=== PATIENT | female | born 1980 | race Caucasian/White ===

== ENCOUNTER 2016-09-01 22:40 | Emergency (ER) | payer OTHER ==
[~2016-09-01] VITALS: Ht 175.3 cm; Wt 98.0 kg
[~2016-09-01 22:40] MED LIST: CLIN-44 PO; LORA10TA68 PO; PNV1TABL25 PO
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
[2016-09-01 23:13] VITALS: BP 109/81
[2016-09-01] MEDS ORDERED: CEPH-264 PO (23:41)
[2016-09-01] MEDS ORDERED: FLUC100T7 PO (23:42)
[2016-09-01] MEDS ORDERED: HYDR-79 PO (23:44)
[2016-09-01] MEDS ORDERED: METRONIDAZOLE 500 MG TABLET PO ONE (23:45)
[2016-09-01] MEDS ORDERED: CEFTRIAXONE SODIUM 1 GM in IV NORMAL SALINE 50ML 50 ML IV ONE (23:45)
[2016-09-01] MEDS ORDERED: TRAMADOL 50 MG PO ONE (23:45)
[2016-09-01] MEDS ORDERED: AZITHROMYCIN 250 MG TABLET. PO ONE (23:45)
[2016-09-01] MEDS ORDERED: ONDANSETRON PF 4 MG/2 ML VIAL. IV ONE (23:45)
[2016-09-01] MEDS ORDERED: CEFTRIAXONE SODIUM 1 GM VIAL IV ONE (23:58)
[2016-09-02] MEDS ORDERED: ONDANSETRON ODT 4 MG TAB.RAPDIS PO ONE
[2016-09-02] MEDS ORDERED: CEFTRIAXONE IM 1 GM VIAL. IM ONE
[2016-09-02 00:29] LABS: BARBITURATES NEG (NEG); BENZODIAZEPINES POS (NEG); CANNABINOIDS NEG (NEG); COCAINE NEG (NEG); METHADONE NEG (NEG); OPIATES NEG (NEG); PHENCYCLIDINE NEG (NEG)
[2016-09-02 00:30] LABS: AMPHETAMINE/METHAMPHETAMINE NEG (NEG)
[2016-09-02 00:42] LABS: BILIRUBIN,URINE NEG (NEG); CLARITY,URINE CLEAR; COLOR,URINE YELLOW; GLUCOSE,URINE NEG (NEG); UROBILINOGEN,URINE 0.2 mg/dL (0.2 mg/dL)
[2016-09-02 00:43] LABS: BACTERIA,URINE FEW /HPF (0-FEW); NITRITE,URINE NEG (NEG); SQUAMOUS EPITHELIAL CELL,UR FEW /LPF; WBC,URINE 0 /HPF (0-4)
[2016-09-02 19:07] LABS: HCV ANTIBODY <0.1 s/co ratio (0.0-0.9); HEP A IGM ABDY Negative (Negative); RPR REFLEX Negative (Non Reactive)
[2016-09-05 18:12] LABS: CHLAMYDIA PROBE Negative (Negative)
== END 2016-09-02 00:42 | disposition home or self-care (01) ==
LOC: ER 22:40
DX: N76.0 Acute vaginitis (principal); N76.2 Acute vulvitis; R21 Rash and other nonspecific skin eruption; Z86.14 Personal history of Methicillin resistant Staphylococcus aureus infection; Z88.6 Allergy status to analgesic agent; Z88.1 Allergy status to other antibiotic agents
CPT/HCPCS: 36415; 80074; 80305; 81001; 84702; 86592; 86593; 87491; 87591; 96372; 99284; J0456; J0696; Q0111; Q0162; G0481

== ENCOUNTER 2016-12-13 18:10 | Emergency (ER) | payer OTHER ==
[~2016-12-13] VITALS: Ht 175.3 cm; Wt 98.0 kg
[~2016-12-13 18:10] MED LIST changes: +CEPH-264 PO; -CLIN-44 PO; +CLIN150C14 PO; +FLUC100T7 PO; +HYDR-79 PO
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
[2016-12-13 19:20] VITALS: BP 136/71
[2016-12-13] MEDS ORDERED: HYDR-971 PO (19:21)
[2016-12-13] MEDS ORDERED: IBUP600T16 PO (19:21)
[2016-12-13] MEDS ORDERED: IBUPROFEN 600 MG TABLET. PO ONE (19:45)
[2016-12-13] MEDS ORDERED: HYDROcodone/APAP 7.5/325MG 1 TAB TABLET PO ONE (19:45)
--- NOTE | 2016-12-14 07:44 | RAD ---
Right hand, 3 views, 12/13/2016: History: Hand injury, pain No fracture or dislocation is identified. The soft tissues are unremarkable. IMPRESSION: No significant right hand abnormality is detected.
--- NOTE | 2016-12-14 07:51 | RAD ---
Right wrist, 3 views, 12/13/2016: History: Injury, pain No fracture or dislocation is identified. There is mild subcutaneous edema about the wrist. IMPRESSION: No acute bony abnormality is detected.
== END 2016-12-13 19:30 | disposition home or self-care (01) ==
LOC: ER 18:10
DX: S60.211A Contusion of right wrist, initial encounter (principal); J45.909 Unspecified asthma, uncomplicated; Z88.1 Allergy status to other antibiotic agents; Z88.6 Allergy status to analgesic agent; W22.01XA Walked into wall, initial encounter; Y93.89 Activity, other specified; Y99.8 Other external cause status; Y92.89 Other specified places as the place of occurrence of the external cause
CPT/HCPCS: 73110; 73130; 81025; 99284-25

== ENCOUNTER 2017-03-29 13:13 | Emergency (ER) | payer OTHER ==
[~2017-03-29] VITALS: Ht 175.3 cm; Wt 98.0 kg
[~2017-03-29 13:13] MED LIST changes: +HYDR-971 PO; +IBUP600T16 PO
[2017-03-29] MEDS ORDERED: FAMOTIDINE 20 MG/2 ML VIAL IVP ONE (13:30)
[2017-03-29] MEDS ORDERED: DEXAMETHASONE SOD PHOS 4 MG/ML VIAL IV ONE (13:30)
[2017-03-29] MEDS ORDERED: IV NORMAL SALINE 1,000ML 1,000 ML IV SCH (13:30)
[2017-03-29] MEDS ORDERED: diphenhydrAMINE 50 MG/ML VIAL IVP ONE (13:30)
--- NOTE | 2017-03-29 13:30 | PHYS DOC ---
Past History Past Medical History: Anxiety, Depression Past Surgical History: Tonsillectomy Alcohol Use: None Drug Use: None Adult General Chief Complaint Chief Complaint: DIFFICULTY SWALLOWING HPI HPI Patient is a 36 year old female who presents with complaint of difficulty with swallowing and speaking. Patient states that she started feeling some fullness in her throat shortly prior to arrival. EMS brought the patient to the emergency department. They had given the patient 0.3 mg of IM epinephrine prior to arrival which patient stated provided mild to moderate relief. Patient denies any symptoms prior to onset including fevers or sore throat. Patient has had history of tonsillectomy. The patient is speaking currently in a whisper. Patient denies shortness of breath or difficulty breathing. Review of Systems Review of Systems Constitutional: Denies fever or chills [] Eyes: Denies change in visual acuity, redness, or eye pain [] HENT: Throat swelling, difficulty speaking and swallowing[] Respiratory: Denies cough or shortness of breath [] Cardiovascular: Denies chest pain or edema[] GI: Denies abdominal pain, nausea, vomiting, bloody stools or diarrhea [] : Denies dysuria or hematuria [] Musculoskeletal: Denies back pain or joint pain [] Integument: Denies rash or skin lesions [] Neurologic: Denies headache, focal weakness or sensory changes [] Current Medications Current Medications Current Medications Medications (Trade) Dose Ordered Sig/Galo Start Time Stop Time Status Last Admin Dose Admin Dexamethasone Sodium Phosphate (Decadron) 20 mg 1X ONCE 03/29/17 13:30 03/29/17 13:31 Diphenhydramine HCl (Benadryl) 25 mg 1X ONCE 03/29/17 13:30 03/29/17 13:31 UNV Famotidine (Pepcid) 20 mg 1X ONCE 03/29/17 13:30 03/29/17 13:31 UNV Sodium Chloride 1,000 ml @ 1,000 mls/hr Q1H 03/29/17 13:30 03/29/17 14:29 Allergies Allergies Allergies Coded Allergies Type Severity Reaction Last Updated Verified naproxen Adverse Reaction Intermediate 09/06/14 Yes vancomycin Adverse Reaction Intermediate 09/06/14 Yes Physical Exam Physical Exam Constitutional: Alert, afebrile, appears in mild to moderate distress. [] HENT: Normocephalic, atraumatic, bilateral external ears normal, mild uvular edema, mild pharyngeal erythema, no oral exudates, nose normal. [] Eyes: PERRLA, EOMI, conjunctiva normal, no discharge. [] Neck: Normal range of motion, no tenderness, supple, no stridor. [] Cardiovascular:Heart rate regular rhythm, no murmur [] Lungs & Thorax: Bilateral breath sounds clear to auscultation [] Abdomen: Bowel sounds normal, soft, no tenderness, no masses, no pulsatile masses. [] Skin: Warm, dry, no erythema, no rash. [] Back: No tenderness, no CVA tenderness. [] Extremities: No tenderness, no cyanosis, no clubbing, ROM intact, no edema. [] Neurologic: Alert and oriented X 3, normal motor function, normal sensory function, no focal deficits noted. [] Current Patient Data Vital Signs Vital Signs Date Time Temp Pulse Resp B/P (MAP) Pulse Ox O2 Delivery O2 Flow Rate FiO2 03/29/17 15:34 66 18 126/76 (93) 95 Room Air 03/29/17 13:13 98.4 Lab Results Laboratory Tests Test 03/29/17 13:25 03/29/17 13:35 03/29/17 14:22 03/29/17 14:55 White Blood Count 11.8 x10^3/uL Red Blood Count 5.09 x10^6/uL Hemoglobin 15.2 g/dL Hematocrit 44.0 % Mean Corpuscular Volume 86 fL Mean Corpuscular Hemoglobin 30 pg Mean Corpuscular Hemoglobin Concent 34 g/dL Red Cell Distribution Width 13.8 % Platelet Count 149 x10^3/uL Neutrophils (%) (Auto) 29 % Lymphocytes (%) (Auto) 66 % Monocytes (%) (Auto) 5 % Eosinophils (%) (Auto) 0 % Basophils (%) (Auto) 0 % Neutrophils # (Auto) 3.4 x10^3uL Lymphocytes # (Auto) 7.8 x10^3/uL Monocytes # (Auto) 0.6 x10^3/uL Eosinophils # (Auto) 0.0 x10^3/uL Basophils # (Auto) 0.0 x10^3/uL Sodium Level 140 mmol/L Potassium Level 3.0 mmol/L Chloride Level 105 mmol/L Carbon Dioxide Level 25 mmol/L Anion Gap 10 Blood Urea Nitrogen 7 mg/dL Creatinine 0.8 mg/dL Estimated GFR (Cockcroft-Gault) 82.1 Glucose Level 152 mg/dL Calcium Level 9.0 mg/dL Group A Streptococcus Rapid Negative Urine Collection Type Void Urine Color [place] Urine Clarity Cloudy Urine pH 5.0 Urine Specific [place] >=1.030 Urine Protein Neg Urine Glucose (UA) Neg mg/dL Urine Ketones (Stick) Trace mg/dL Urine Blood Neg Urine Nitrite Neg Urine Bilirubin Neg Urine Urobilinogen Dipstick 0.2 mg/dL Urine Leukocyte Esterase Neg Urine RBC Occ /HPF Urine WBC 1-4 /HPF Urine Squamous Epithelial Cells Mod /LPF Urine Amorphous Sediment Present /HPF Urine Bacteria Few /HPF Urine Mucus Mod /LPF Bedside Urine HCG, Qualitative hcg negative Current Medications Medications (Trade) Dose Ordered Sig/Galo Route PRN Reason Start Time Stop Time Status Last Admin Dose Admin Sodium Chloride 1,000 ml @ 1,000 mls/hr Q1H IV 03/29/17 13:30 03/29/17 14:29 DC 03/29/17 13:58 Dexamethasone Sodium Phosphate (Decadron) 20 mg 1X ONCE IV 03/29/17 13:30 03/29/17 13:31 DC 03/29/17 13:56 Diphenhydramine HCl (Benadryl) 25 mg 1X ONCE IVP 03/29/17 13:30 03/29/17 13:31 DC 03/29/17 13:56 Famotidine (Pepcid) 20 mg 1X ONCE IVP 03/29/17 13:30 03/29/17 13:31 DC 03/29/17 13:57 Ondansetron HCl (Zofran) 4 mg 1X ONCE IV 03/29/17 14:15 03/29/17 14:17 DC 03/29/17 14:08 Iohexol (Omnipaque 300 Mg/ml) 75 ml 1X ONCE IV 03/29/17 14:45 03/29/17 14:46 DC 03/29/17 14:52 Ampicillin Sodium/ Sulbactam Sodium 3 gm/Sodium Chloride 100 ml @ 200 mls/hr 1X ONCE IV 03/29/17 16:00 03/29/17 16:29 EKG EKG Not performed[] Radiology/Procedures Radiology/Procedures [address] [address] IMAGING REPORT Signed PATIENT: CHERYL MARTINEZ ACCOUNT: [id number] : 1980 LOCATION: ER AGE: 36 SEX: F EXAM STATUS: REG ER ORD. PHYSICIAN: MAGDA KAUR MD REASON: difficulty speaking, throat fullness PROCEDURE: NECK SOFT TISSUE Neck for soft tissues, 03/29/2017: History: Throat fullness, difficulty speaking Cartilaginous calcifications are present in the laryngeal region. The epiglottis is not clearly defined but shows no definite enlargement. There is soft tissue swelling at the base of the tongue in the preepiglottic region. No prevertebral soft tissue swelling is seen. The tracheal airway is unremarkable. IMPRESSION: Nonspecific soft tissue swelling at the base of the tongue. DICTATED AND SIGNED BY: TYSHAWN TREVINO MD DATE: 03/29/178 CC: MAGDA KAUR MD; [facility] ~ [address] [address] IMAGING REPORT Signed PATIENT: CHERYL MARTINEZ ACCOUNT: [id number] : 1980 LOCATION: ER AGE: 36 SEX: F EXAM STATUS: REG ER ORD. PHYSICIAN: MAGDA KAUR MD REASON: soft tissue swelling at base of tongue PROCEDURE: CT SOFT TISSUE NECK W/CONTRAST CT neck without IV contrast Indication: Soft tissue swelling of the base of tongue. Technique: CT neck with 75 mL of Omnipaque 300 with multi planar reformats. Comparison: None Findings: Visualized sections through the brain are within normal limits. Visualized orbits within normal limits. The nasopharynx is within normal limits. There is enlargement of the lingual tonsils with 6 mm well-circumscribed low attenuating lesion in the left aspect with enhancing periphery. Pharyngeal fat is preserved. The hypopharynx within normal limits. Submandibular glands, parotid glands and thyroid are within normal limits. Enlarged cervical lymph nodes. Index lymph nodes as follows: -Right submandibular lymph node measures 1.4 x 0.8 cm (series 2 image 34). -Right level 2A lymph node measures 1.8 x 0.8 cm (series 2 image 30). Another right level 2A lymph node measures 1.2 x 1.0 cm (series 2 image 34) -Left level 3 lymph node measures 1.3 x 1.1 cm (series 2 image 46). -Left neck base lymph node measures 1.4 x 1.1 cm (series 2 image 47). Visualized lungs are clear. Prevertebral soft tissue within normal limits. No suspicious bony lesions. Jugular veins are patent. Impression: 1. Bilateral cervical adenopathy and prominence of lingual tonsils concerning for lymphoproliferative disease. 2. Small (6 mm) area of attenuation within the left aspect of the lingual tonsil may represent small tonsillar abscess. PQRS Compliance Statement: One or more of the following individualized dose reduction techniques were utilized for this examination: 1. Automated exposure control 2. Adjustment of the mA and/or kV according to patient size 3. Use of iterative reconstruction technique DICTATED AND SIGNED BY: GAYLA FRANCIS DO DATE: 03/29/171499 CC: MAGDA KAUR MD; [facility] ~ [] Course & Med Decision Making Course & Med Decision Making Pertinent Labs and Imaging studies reviewed. (See chart for details) The patient was given IV Decadron, Benadryl, and Pepcid as well as IV fluids upon initial presentation to the emergency department. The patient's plain film x-ray showed fullness at the base of the tongue, thus prompting CT imaging. The CT imaging shows bilateral lymphadenopathy as well as enlarged lingual tonsils and a possible left lingual tonsillar abscess. On reevaluation, the patient continues to have a muffled voice but is maintaining her airway without difficulty. I contacted [facility] transfer line and spoke with Dr. English of ENT. She accepted the patient for transfer to the emergency department at [facility] for acute evaluation. Patient was administered 3 g of Unasyn prior to transfer. Patient will be transferred by ground EMS. Dragon Disclaimer Dragon Disclaimer This chart was dictated in whole or in part using Voice Recognition software in a busy, high-work load, and often noisy Emergency Department environment. It may contain unintended and wholly unrecognized errors or omissions. Departure Departure: Impression: Primary Impression: Acute lingual tonsillitis Additional Impression: Difficulty swallowing Disposition: 02 XFER SHT-TRM HOSP Condition: STABLE Referrals: DARWIN LAGUNAS (PCP) Problem Qualifiers Additional Impression: Difficulty swallowing Dysphagia type: pharyngeal phase Qualified Codes: R13.13 - Dysphagia, pharyngeal phase MAGDA KAUR MD Mar 29, 2017 13:30
[2017-03-29 13:35] LABS: BASO % 0 % (0-3); EOS % 0 % (0-3); HEMOGLOBIN 15.2 g/dL (12.0-15.5); LYMPH # 7.8 x10^3/uL (1.0-4.8); LYMPH % 66 % (24-48); MEAN CORPUSCULAR HEMOGLOBIN 30 pg (25-35); MEAN CORPUSCULAR HGB CONC 34 g/dL (31-37); MEAN CORPUSCULAR VOLUME 86 fL (79-100); MONO # 0.6 x10^3/uL (0.0-1.1); MONO % 5 % (0-9); NEUT # 3.4 x10^3uL (1.8-7.7); NEUT % 29 % (31-73); PLATELET COUNT 149 x10^3/uL (140-400); RED BLOOD COUNT 5.09 x10^6/uL (3.50-5.40); RED CELL DISTRIBUTION WIDTH 13.8 % (11.5-14.5); WHITE BLOOD COUNT 11.8 x10^3/uL (4.0-11.0)
[2017-03-29 13:44] LABS: CREATININE 0.8 mg/dL (0.6-1.0); GFR 82.1
[2017-03-29] MEDS ORDERED: ONDANSETRON PF 4 MG/2 ML VIAL. IV ONE (14:15)
--- NOTE | 2017-03-29 14:24 | RAD ---
Neck for soft tissues, 03/29/2017: History: Throat fullness, difficulty speaking Cartilaginous calcifications are present in the laryngeal region. The epiglottis is not clearly defined but shows no definite enlargement. There is soft tissue swelling at the base of the tongue in the preepiglottic region. No prevertebral soft tissue swelling is seen. The tracheal airway is unremarkable. IMPRESSION: Nonspecific soft tissue swelling at the base of the tongue.
[2017-03-29] MEDS ORDERED: IOHEXOL 300 MG/ML 75 ML VIAL. IV ONE (14:45)
--- NOTE | 2017-03-29 15:13 | RAD ---
CT neck without IV contrast Indication: Soft tissue swelling of the base of tongue. Technique: CT neck with 75 mL of Omnipaque 300 with multi planar reformats. Comparison: None Findings: Visualized sections through the brain are within normal limits. Visualized orbits within normal limits. The nasopharynx is within normal limits. There is enlargement of the lingual tonsils with 6 mm well-circumscribed low attenuating lesion in the left aspect with enhancing periphery. Pharyngeal fat is preserved. The hypopharynx within normal limits. Submandibular glands, parotid glands and thyroid are within normal limits. Enlarged cervical lymph nodes. Index lymph nodes as follows: -Right submandibular lymph node measures 1.4 x 0.8 cm (series 2 image 34). -Right level 2A lymph node measures 1.8 x 0.8 cm (series 2 image 30). Another right level 2A lymph node measures 1.2 x 1.0 cm (series 2 image 34) -Left level 3 lymph node measures 1.3 x 1.1 cm (series 2 image 46). -Left neck base lymph node measures 1.4 x 1.1 cm (series 2 image 47). Visualized lungs are clear. Prevertebral soft tissue within normal limits. No suspicious bony lesions. Jugular veins are patent. Impression: 1. Bilateral cervical adenopathy and prominence of lingual tonsils concerning for lymphoproliferative disease. 2. Small (6 mm) area of attenuation within the left aspect of the lingual tonsil may represent small tonsillar abscess. PQRS Compliance Statement: One or more of the following individualized dose reduction techniques were utilized for this examination: 1. Automated exposure control 2. Adjustment of the mA and/or kV according to patient size 3. Use of iterative reconstruction technique
[2017-03-29 15:20] LABS: BILIRUBIN,URINE NEG (NEG); CLARITY,URINE CLOUDY; COLOR,URINE AMBER; GLUCOSE,URINE NEG (NEG)
[2017-03-29 15:21] LABS: AMORPHOUS SEDIMENT,UR PRESENT /HPF; BACTERIA,URINE FEW /HPF (0-FEW); NITRITE,URINE NEG (NEG); RBC,URINE OCC /HPF (0-2); SQUAMOUS EPITHELIAL CELL,UR MOD /LPF; UROBILINOGEN,URINE 0.2 mg/dL (0.2 mg/dL)
[2017-03-29] MEDS ORDERED: AMPICILLIN/SULBACTAM 3 GM in IV NORMAL SALINE 100ML 100 ML IV ONE (16:00)
[2017-03-29 16:50] VITALS: BP 111/58
== END 2017-03-29 16:45 | disposition short-term general hospital (02) ==
LOC: ER 13:13
DX: J03.90 Acute tonsillitis, unspecified (principal); R13.10 Dysphagia, unspecified; F41.9 Anxiety disorder, unspecified; Z88.6 Allergy status to analgesic agent; Z88.1 Allergy status to other antibiotic agents
CPT/HCPCS: 36415; 70360; 70491; 80048; 81001; 81025; 85025; 87070; 87880; 96361; 96365; 96375; 99285; J0295; J1100; J1200; J2405; Q9967; S0028; J7030

== ENCOUNTER 2017-08-17 15:28 | Emergency (ER) | payer OTHER ==
[~2017-08-17] VITALS: Ht 175.3 cm; Wt 84.4 kg
[2017-08-17 15:28] VITALS: BP 121/61
--- NOTE | 2017-08-17 16:56 | PHYS DOC ---
Past History Past Medical History: Anxiety, Depression Past Surgical History: Tonsillectomy Smoking: Non-smoker Alcohol Use: None Drug Use: None Adult General Chief Complaint Chief Complaint: FLU SYMPTOM HPI HPI 36-year-old female patient with history of asthma complaining of nasal congestion and dry cough and sore throat and sinus pain for the last 2 weeks with subjective fever and episodes of shortness of breath. Patient complaining of few episodes of diarrhea and one episode of vomiting after cough. Patient did not have sick contacts at home and did not seeking medical attention. Patient states she is not able to sleep because of cough. Review of Systems Review of Systems Constitutional: Fever Eyes: Denies change in visual acuity, redness, or eye pain [] HENT: His nasal congestion Respiratory: Reports cough and shortness of breath Cardiovascular: No additional information not addressed in HPI [] GI: Denies abdominal pain, nausea, reports vomiting vomiting, diarrhea [] : Denies dysuria or hematuria [] Musculoskeletal: Denies back pain or joint pain [] Integument: Denies rash or skin lesions [] Neurologic: Denies headache, focal weakness or sensory changes [] Endocrine: Denies polyuria or polydipsia [] All other systems were reviewed and found to be within normal limits, except as documented in this note. Current Medications Current Medications Current Medications Medications (Trade) Dose Ordered Sig/Galo Start Time Stop Time Status Last Admin Dose Admin Albuterol/ Ipratropium (Duoneb) 3 ml 1X ONCE 08/17/17 17:00 08/17/17 17:01 UNV Benzonatate (Tessalon Perle) 100 mg 1X ONCE 08/17/17 17:00 08/17/17 17:01 UNV Allergies Allergies Allergies Coded Allergies Type Severity Reaction Last Updated Verified naproxen Adverse Reaction Intermediate 09/06/14 Yes vancomycin Adverse Reaction Intermediate 09/06/14 Yes Physical Exam Physical Exam mild no acute distress, non-toxic appearance. [] HENT: Normocephalic, atraumatic, bilateral external ears normal, oropharynx moist, pharyngeal erythema, no oral exudates, nose normal. [] Eyes: PERRLA, EOMI, conjunctiva normal, no discharge. [] Neck: Normal range of motion, no tenderness, supple, no stridor. [] Cardiovascular:Heart rate regular rhythm, no murmur [] Lungs & Thorax: Bilateral breath sounds clear to auscultation [] Abdomen: Bowel sounds normal, soft, no tenderness, no masses, no pulsatile masses. [] Skin: Warm, dry, no erythema, no rash. [] Back: No tenderness, no CVA tenderness. [] Extremities: No tenderness, no cyanosis, no clubbing, ROM intact, no edema. [] Neurologic: Alert and oriented X 3, normal motor function, normal sensory function, no focal deficits noted. [] Psychologic: Anxious, judgement normal, mood normal. [] Current Patient Data Vital Signs Vital Signs Date Time Temp Pulse Resp B/P (MAP) Pulse Ox O2 Delivery O2 Flow Rate FiO2 08/17/17 15:28 98.4 82 18 100 Room Air EKG EKG [] Radiology/Procedures Radiology/Procedures Chest x-ray interpreted by me and did not show acute finding[] Course & Med Decision Making Course & Med Decision Making Pertinent Labs and Imaging studies reviewed. (See chart for details) []discharge: I've spoken with the patient and/or caregivers. I've explained the patient's condition, diagnosis and treatment plan based on information available to me at this time. I've answered the patient's and/or caregivers questions and addressed any concerns. The patient and/or caregivers have a good understanding the patient's diagnosis, condition and treatment plan as can be expected at this point. Vital signs have been stabilized. The patient's condition is stable for discharge from the emergency department. The patient will pursue further outpatient evaluation with her primary care provider or other designated consulting physician as outlined in the discharge instructions. Patient and/or caregivers are agreeable to this plan of care and follow-up instructions have been explained in detail. The patient and/or caregivers have received these instructions in written format and expressed understanding of these discharge instructions. The patient and her caregivers are aware that if any significant change in condition or worsening of symptoms should prompt him to immediately return to this of the closest emergency department. If an emergent department is not readily available I would encourage him to call 911. Esauon Disclaimer Esauon Disclaimer This electronic medical record was generated, in whole or in part, using a voice recognition dictation system. Departure Departure: Impression: Primary Impression: Upper respiratory infection Disposition: HOME, SELF-CARE (At 1800) Condition: IMPROVED Referrals: DARWIN LAGUNAS (PCP) Patient Instructions: Upper Respiratory Infection, Adult Additional Instructions: Drink plenty of liquids Follow-up with your primary care physician in 3-5 days Return to ER if not getting better Scripts Hydrocodone/Chlorphen P-Stirex (Tussionex Pennkinetic Susp) [address].er.12h 5 ML PO BID, #120 ML Prov: LORRI ESTEBAN MD 08/17/17 Methylprednisolone (MEDROL) 4 Mg Tab.ds.pk 1 PKG PO UD, #1 PKG Prov: LORRI ESTEBAN MD 08/17/17 Amoxicillin/Potassium Clav (AUGMENTIN 875-125 TABLET) 1 Each Tablet 1 TAB PO BID, #14 TAB Prov: LORRI ESTEBAN MD 08/17/17 LORRI ESTEABN MD Aug 17, 2017 16:56
[2017-08-17] MEDS ORDERED: BENZONATATE 100 MG CAPSULE. PO ONE (17:00)
[2017-08-17] MEDS ORDERED: IPRATRPIUM/ALBUTEROL 0.5/2.5MG 3 ML NEBU. NEB ONE (17:00)
[2017-08-17 17:04] LABS: INFLUENZA A PATIENT NEGATIVE (NEGATIVE); INFLUENZA B PATIENT NEGATIVE (NEGATIVE)
[2017-08-17 17:14] LABS: BILIRUBIN,URINE NEG (NEG); CLARITY,URINE HAZY; COLOR,URINE YELLOW; GLUCOSE,URINE NEG (NEG)
[2017-08-17 17:15] LABS: BACTERIA,URINE FEW /HPF (0-FEW); NITRITE,URINE NEG (NEG); SQUAMOUS EPITHELIAL CELL,UR FEW /LPF; UROBILINOGEN,URINE 0.2 mg/dL (0.2 mg/dL)
[2017-08-17] MEDS ORDERED: METH4TAB2 PO (18:00)
[2017-08-17] MEDS ORDERED: HYDR115S2 PO (18:00)
[2017-08-17] MEDS ORDERED: AMOX1TAB61 PO (18:00)
[2017-08-17] MEDS ORDERED: AMOXICILLIN/K CLAV 875/125MG TABLET. PO ONE (18:15)
[2017-08-17] MEDS ORDERED: predniSONE 20 MG TABLET PO ONE (18:15)
--- NOTE | 2017-08-18 09:16 | RAD ---
Indication: Cough and congestion for 2 weeks. Technique: PA and lateral views of the chest Comparison: None Findings: Heart is normal in size. Lungs are clear. No pneumothorax or pleural effusion. Visualized bony thorax is within normal limits. Impression: No acute cardiopulmonary process.
== END 2017-08-17 18:16 | disposition home or self-care (01) ==
LOC: ER 15:28
DX: J06.9 Acute upper respiratory infection, unspecified (principal); J45.909 Unspecified asthma, uncomplicated; Z88.6 Allergy status to analgesic agent; Z88.1 Allergy status to other antibiotic agents
CPT/HCPCS: 71046; 81001; 87804; 94640; 99285; J7512; J7620

== ENCOUNTER → 2017-12-02 | Outpatient (CLI) | payer OTHER ==
[~2017-12-02] MED LIST changes: +AMOX1TAB61 PO; +HYDR115S2 PO; +METH4TAB2 PO
--- NOTE | 2017-12-02 16:24 | RAD ---
Indication: Multiple lumps in the soft tissues of bilateral thighs. TECHNIQUE: Grayscale and color Doppler images of the bilateral thighs soft tissues COMPARISON: None FINDINGS: Right side: There are multiple oval-shaped high echogenic lesions with well-circumscribed margins just below the skin. The largest such lesion measures 2.1 x 0.7 x 1.2 cm without internal vascularity. Left side: There are multiple oval-shaped high echogenic lesions with well-circumscribed margins just below the skin. The largest such lesion measures 2.3 x 0.7 x 1.9 cm. IMPRESSION: 1. Multiple bilateral subdermal lesions as described above. Differential diagnoses includes lipomas or leukemic infiltrates. These are amenable to biopsy. Electronically signed by: Olvin Pool DO (12/02/2017 4:20 PM) [facility]
== END | disposition home or self-care (01) ==
LOC: PMG 15:36
PROVIDERS: ATTEND Family Medicine
DX: R22.42 Localized swelling, mass and lump, left lower limb (principal)
CPT/HCPCS: 76882

== ENCOUNTER → 2018-01-24 | Outpatient (CLI) | payer OTHER ==
--- NOTE | 2018-01-25 08:54 | RAD ---
Examination: Ultrasound right thigh region HISTORY: History of right anterior thigh lump COMPARISON: 12/02/2017 FINDINGS: Multiple hyperechogenicities identified in the subcutaneous region of the thigh involving the lateral, anterior and anteromedial portions of the thigh. There are 2 hyperechoic echogenicities in the subcutaneous region of the lateral thigh, anterior thigh and 3 hyperechogenic lesions identified in the region of the medial thigh. The largest of these measures 1.3 cm in the lateral thigh. IMPRESSION: Multiple hyperechogenicities identified in the subcutaneous region of the thigh in the lateral, anterior, medial and anterior portion with the measuring 1.3 cm likely lipomas. Correlate clinically. Electronically signed by: Kumar Mendes MD (01/25/2018 8:50 AM) [facility]
== END | disposition home or self-care (01) ==
LOC: US 15:20
PROVIDERS: ATTEND Family Medicine
DX: R22.41 Localized swelling, mass and lump, right lower limb (principal); F41.9 Anxiety disorder, unspecified
CPT/HCPCS: 76881

== ENCOUNTER 2018-08-16 12:33 | Emergency (ER) | payer OTHER ==
[~2018-08-16] VITALS: Ht 175.3 cm; Wt 90.7 kg
[~2018-08-16 12:33] MED LIST changes: +HYDR-1179 PO; +HYDR-3165 PO; -HYDR-79 PO; -HYDR-971 PO
--- NOTE | 2018-08-16 13:28 | PHYS DOC ---
Past History Past Medical History: Anxiety, Depression, Other Past Surgical History: Tonsillectomy Smoking: Non-smoker Alcohol Use: None Drug Use: None Adult General Chief Complaint Chief Complaint: KNEE INJURY [facility] HPI 37-year-old female presents with right knee pain. The patient was shoveling her driveway one week ago when she slipped. She landed on her left leg, but since that time she has had right knee pain. She is unsure of the exact mechanism of how she fell. She admits she may have twisted the knee. Over the last 2 days, she has had significant increase in the swelling and pain. She has been icing and try to elevate the knee for the last several days without relief. She try to get her PCP yesterday and today but they were too busy to see her and advised she come to the ED. It is very painful walking up and down stairs. It is becoming difficult even flex her knee more than 10. She does not of a history of knee injuries, but has had tendon reconstruction in both shoulders. She denies any other injuries or complaints. Review of Systems Review of Systems Constitutional: Denies fever or chills [] Eyes: Denies change in visual acuity, redness, or eye pain [] HENT: Denies nasal congestion or sore throat [] Respiratory: Denies cough or shortness of breath [] Cardiovascular: No additional information not addressed in HPI [] GI: Denies abdominal pain, nausea, vomiting, bloody stools or diarrhea [] : Denies dysuria or hematuria [] Musculoskeletal: Right knee pain[] Integument: Denies rash or skin lesions [] Neurologic: Denies headache, focal weakness or sensory changes [] Endocrine: Denies polyuria or polydipsia [] All other systems were reviewed and found to be within normal limits, except as documented in this note. Allergies Allergies Allergies Coded Allergies Type Severity Reaction Last Updated Verified naproxen Adverse Reaction Intermediate 09/06/14 Yes vancomycin Adverse Reaction Intermediate 09/06/14 Yes Physical Exam Physical Exam Constitutional: Well developed, well nourished, no acute distress, non-toxic appearance. [] HENT: Normocephalic, atraumatic, bilateral external ears normal, oropharynx moist, no oral exudates, nose normal. [] Eyes: PERRLA, EOMI, conjunctiva normal, no discharge. [] Neck: Normal range of motion, no tenderness, supple, no stridor. [] Cardiovascular:Heart rate regular rhythm, no murmur [] Lungs & Thorax: Bilateral breath sounds clear to auscultation [] Abdomen: Bowel sounds normal, soft, no tenderness, no masses, no pulsatile masses. [] Skin: Warm, dry, no erythema, no rash. [] Back: No tenderness, no CVA tenderness. [] Extremities: Moderate swelling of the right knee, no obvious deformity, pain along the medial joint line. Unable to perform full ligament exam due to pain.[ ] Neurologic: Alert and oriented X 3, normal motor function, normal sensory function, no focal deficits noted. [] Psychologic: Affect normal, judgement normal, mood normal. [] Current Patient Data Vital Signs Vital Signs Date Time Temp Pulse Resp B/P (MAP) Pulse Ox O2 Delivery O2 Flow Rate FiO2 08/16/18 12:33 98.4 85 16 99 Room Air EKG EKG [] Radiology/Procedures Radiology/Procedures [] Impressions: Indication:fell x 3 weeks ago, right knee pain, pt shielded TECHNIQUE: 4 views of the right knee COMPARISON:None FINDINGS/ impression: No acute fracture or. No joint effusion. No arthritis. Electronically signed by: Olvin Francis DO (08/16/2018 2:12 PM) [facility] DICTATED AND SIGNED BY: OLVIN FRANCIS DO DATE: 08/16/18 1411 CC: BRITTNEY SHETTY DO; DARWIN LAGUNAS ~ Course & Med Decision Making Course & Med Decision Making Pertinent Labs and Imaging studies reviewed. (See chart for details) The patient's x-ray is negative for fracture or dislocation. I am concerned she may have a meniscal tear. I will place her in a knee immobilizer recommended she follow up with orthopedics. She is stable for discharge at this time. [] Dragon Disclaimer Dragon Disclaimer This electronic medical record was generated, in whole or in part, using a voice recognition dictation system. Departure Departure: Impression: Primary Impression: Right knee pain Additional Impression: Meniscal injury Disposition: HOME, SELF-CARE Condition: STABLE Referrals: DARWIN LAGUNAS (PCP) Patient Instructions: Meniscus Tear with Phase I [facility] Scripts Hydrocodone Bit/Acetaminophen (NORCO 5-325 TABLET) 1 Each Tablet 1 TAB PO PRN Q6HRS PRN for PAIN, #10 TAB 0 Refills Prov: BRITTNEY SHETTY DO 08/16/18 Problem Qualifiers Primary Impression: Right knee pain Chronicity: acute Qualified Codes: M25.561 - Pain in right knee Additional Impression: Meniscal injury Encounter type: initial encounter Laterality: right Qualified Codes: S83.8X1A - Sprain of other specified parts of right knee, initial encounter BRITTNEY SHETTY DO Aug 16, 2018 13:28
--- NOTE | 2018-08-16 14:15 | RAD ---
Indication:fell x 3 weeks ago, right knee pain, pt shielded TECHNIQUE: 4 views of the right knee COMPARISON:None FINDINGS/ impression: No acute fracture or. No joint effusion. No arthritis. Electronically signed by: Olvin Pool DO (08/16/2018 2:12 PM) [facility]
[2018-08-16] MEDS ORDERED: HYDR-3165 PO (14:26)
== END 2018-08-16 15:00 | disposition home or self-care (01) ==
LOC: ER 12:33
DX: S83.8X1A Sprain of other specified parts of right knee, initial encounter (principal); F41.9 Anxiety disorder, unspecified; F32.9 Major depressive disorder, single episode, unspecified; Z88.6 Allergy status to analgesic agent; Z88.1 Allergy status to other antibiotic agents; W01.0XXA Fall on same level from slipping, tripping and stumbling without subsequent striking against object, initial encounter; Y93.H1 Activity, digging, shoveling and raking; Y92.89 Other specified places as the place of occurrence of the external cause; Y99.8 Other external cause status
CPT/HCPCS: 29505; 73564; 99283

== ENCOUNTER → 2018-09-03 | Outpatient (CLI) | payer OTHER ==
[2018-08-16 12:33] VITALS: BP 112/52
[~2018-09-03] MED LIST changes: +FAMO-63 PO; +HYDR25SU18 RC; +HYOS0.1265 SL; +ONDA4TAB12 PO; +PRED20TA PO
--- NOTE | 2018-09-03 15:42 | RAD ---
EXAM: Bilateral knees, standing views. HISTORY: Fall. COMPARISON: 08/16/2018. FINDINGS: Standing PA and AP views of the bilateral knees are obtained. There is no fracture, dislocation or subluxation. There is suggestion of mild bilateral genu valgus. IMPRESSION: No acute osseous finding. Electronically signed by: Yuli Ritter MD (09/03/2018 3:39 PM) [id number]
== END | disposition home or self-care (01) ==
LOC: RAD 15:04
PROVIDERS: ATTEND Orthopaedic Surgery Sports Medicine
DX: M25.561 Pain in right knee (principal)
CPT/HCPCS: 73565

== ENCOUNTER 2018-10-24 14:47 | Emergency (ER) | payer OTHER ==
[~2018-10-24] VITALS: Ht 175.3 cm; Wt 90.7 kg
[~2018-10-24 14:47] MED LIST changes: -FAMO-63 PO; -HYDR25SU18 RC; -HYOS0.1265 SL; -ONDA4TAB12 PO; -PRED20TA PO
[2018-10-24] MEDS ORDERED: IV NORMAL SALINE 1,000ML 1,000 ML IV ONE ×2 (15:15→16:45)
[2018-10-24 15:24] LABS: BASO % 0 % (0-3); EOS % 0 % (0-3); HEMATOCRIT 41.5 % (36.0-47.0); HEMOGLOBIN 14.1 g/dL (12.0-15.5); LYMPH # 1.6 x10^3/uL (1.0-4.8); LYMPH % 46 % (24-48); MEAN CORPUSCULAR HEMOGLOBIN 30 pg (25-35); MEAN CORPUSCULAR HGB CONC 34 g/dL (31-37); MEAN CORPUSCULAR VOLUME 89 fL (79-100); MONO # 0.4 x10^3/uL (0.0-1.1); MONO % 11 % (0-9); NEUT # 1.6 x10^3uL (1.8-7.7); NEUT % 44 % (31-73); PLATELET COUNT 156 x10^3/uL (140-400); RED BLOOD COUNT 4.67 x10^6/uL (3.50-5.40); RED CELL DISTRIBUTION WIDTH 13.7 % (11.5-14.5); WHITE BLOOD COUNT 3.6 x10^3/uL (4.0-11.0)
[2018-10-24] MEDS ORDERED: ONDANSETRON PF 4 MG/2 ML VIAL. IV ONE (15:30)
[2018-10-24] MEDS ORDERED: FAMOTIDINE 20 MG/2 ML VIAL IVP ONE (15:30)
[2018-10-24] MEDS ORDERED: KETOROLAC 30 MG/ML VIAL. IV ONE (15:30)
[2018-10-24 15:41] LABS: ALBUMIN 3.9 g/dL (3.4-5.0); ALBUMIN/GLOBULIN RATIO 1.1 (1.0-1.7); CALCIUM 8.9 mg/dL (8.5-10.1); CREATININE 0.9 mg/dL (0.6-1.0); GFR 70.8; POTASSIUM 4.1 mmol/L (3.5-5.1); TOTAL BILIRUBIN 0.4 mg/dL (0.2-1.0); TOTAL PROTEIN 7.5 g/dL (6.4-8.2)
[2018-10-24] MEDS ORDERED: IOHEXOL 300 MG/ML 75 ML VIAL. IV ONE (17:00)
[2018-10-24] MEDS ORDERED: DICYCLOMINE 20 MG/2 ML AMPUL. IM ONE (17:00)
[2018-10-24 17:32] LABS: BACTERIA,URINE FEW /HPF (0-FEW); BILIRUBIN,URINE NEG (NEG); CLARITY,URINE CLEAR; COLOR,URINE YELLOW; GLUCOSE,URINE NEG (NEG); NITRITE,URINE NEG (NEG); SQUAMOUS EPITHELIAL CELL,UR OCC /LPF; UROBILINOGEN,URINE 0.2 mg/dL (0.2 mg/dL)
--- NOTE | 2018-10-24 17:32 | RAD ---
CT ABD PELV W/ IV CONTRST ONLY Indication: Abdominal pain. Hematochezia. Nausea and diarrhea for one week. Exposure: One or more of the following individualized dose reduction techniques were utilized for this examination: 1. Automated exposure control 2. Adjustment of the mA and/or kV according to patient size 3. Use of iterative reconstruction technique. Technique: Intravenous contrast was given. No oral contrast per request. Urgent interpretation reporting is requested. Limited images are available from a CT scan of June 29, 2010, without report. FINDINGS: Atelectasis in the left lung base. The right lobe liver is elongated, 23 cm. Small hypodense lesions of the liver, too small to characterize but most commonly would be benign. Largest at the upper right lobe measures about 6 mm, slightly larger in size and on the prior study. Spleen mildly enlarged, 14 cm. No peripancreatic inflammation or fluid. The adrenal demonstrates no evidence of a mass. No significant hydronephrosis. Symmetric enhancement of both kidneys without focal lesion. No calcified gallstone. No aortic aneurysm. There is mild stranding within the central mesenteric fat with mildly enlarged lymph nodes, measuring up to 6 mm short axis. There are also prominent aortocaval lymph nodes measuring up to 9 mm short axis. Borderline prominent inguinal lymph nodes bilaterally. No significant small bowel distention. No evidence of acute colitis. Appendix is not clearly visualized. There is no evidence of ascites. No evidence of pneumoperitoneum. Hypodense lesion in the right adnexa measures 4 cm and -1 Hounsfield units, most likely an ovarian cyst. Intrauterine device is noted. The urinary bladder is not adequately distended for evaluation. Vertebral body height and alignment are intact. There is mild degenerative spurring. IMPRESSION: 1. Mild stranding within the central mesenteric fat with mildly enlarged lymph nodes. There also mildly enlarged retroperitoneal lymph nodes. This is often due to nonspecific inflammatory or infectious etiology, occasionally can be neoplastic such as lymphoma. However, the fact that a similar finding was seen in 2010 would make an aggressive process seem less likely. Follow-up CT scan in 3-4 months could be of benefit to evaluate for any progression or regression. 2. Hepatosplenomegaly. 3. Right ovarian lesion, most likely a 4 cm cyst. 4. Multiple tiny hepatic lesions, one of which at the dome is slightly larger than on prior study, but that was in 2010. Benign etiology is still favored, in the absence of other risk factor. Electronically signed by: Beau Barron MD (10/24/2018 5:29 PM) [facility]
--- NOTE | 2018-10-24 17:36 | PHYS DOC ---
Past History Past Medical History: Anxiety, Asthma, Depression, Diabetes, Other Past Surgical History: , Tonsillectomy Smoking: Cigarettes, Less than 1pk/day Alcohol Use: None Drug Use: None Adult General Chief Complaint Chief Complaint: NAUSEA/VOMITING/DIARRHEA HPI HPI 38-year-old female presents with report of diffuse abdominal pain with associated nausea, vomiting and diarrhea. Patient reports his been ongoing for the last 6 days. Patient did report noticing some "blood" in her stool today. Denies fever or chills. Reports generalized malaise. Patient reports concern that she is "unable to keep anything down ". Denies known sick contacts. Denies . Review of Systems Review of Systems Constitutional: Denies fever or chills; reports generalized malaise[] Eyes: Denies change in visual acuity, redness, or eye pain [] HENT: Denies nasal congestion or sore throat [] Respiratory: Denies cough or shortness of breath [] Cardiovascular: Denies chest pain or palpitations GI: Reports abdominal pain, nausea, vomiting, and diarrhea [] : Denies dysuria or hematuria [] Musculoskeletal: Denies back pain or joint pain [] Integument: Denies rash or skin lesions [] Neurologic: Denies headache, focal weakness or sensory changes [] Complete systems were reviewed and found to be within normal limits, except as documented in this note. Current Medications Current Medications Current Medications Medications (Trade) Dose Ordered Sig/Galo Start Time Stop Time Status Last Admin Dose Admin Dicyclomine HCl (Bentyl) 20 mg 1X ONCE 10/24/18 17:00 10/24/18 17:01 DC 10/24/18 17:09 20 MG Famotidine (Pepcid Vial) 20 mg 1X ONCE 10/24/18 15:30 10/24/18 15:31 DC 10/24/18 15:14 20 MG Iohexol (Omnipaque 300 Mg/ml) 75 ml 1X ONCE 10/24/18 17:00 10/24/18 17:01 DC 10/24/18 16:57 75 ML Ketorolac Tromethamine (Toradol 30mg Vial) 15 mg 1X ONCE 10/24/18 15:30 10/24/18 15:31 DC 10/24/18 15:21 15 MG Ondansetron HCl (Zofran) 4 mg 1X ONCE 10/24/18 15:30 10/24/18 15:31 DC 10/24/18 15:14 4 MG Sodium Chloride 1,000 ml @ 1,000 mls/hr 1X ONCE 10/24/18 16:45 10/24/18 17:44 10/24/18 17:08 1,000 MLS/HR Allergies Allergies Allergies Coded Allergies Type Severity Reaction Last Updated Verified sulfamethoxazole Allergy Unknown 10/24/18 Yes trimethoprim Allergy Unknown 10/24/18 Yes naproxen Adverse Reaction Intermediate 09/06/14 Yes vancomycin Adverse Reaction Intermediate 09/06/14 Yes Physical Exam Physical Exam Constitutional: Well developed, well nourished, uncomfortable, non-toxic appearance. [] HENT: Normocephalic, atraumatic, oropharynx tacky Eyes: Conjunctiva normal, no discharge. 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 Skin: Warm, dry, no erythema, no rash. [] Extremities: No tenderness, ROM intact, no edema. [] Neurologic: Alert and oriented X 3, no focal deficits noted. [] Psychologic: Affect normal, judgement normal, mood normal. [] Current Patient Data Vital Signs Vital Signs Date Time Temp Pulse Resp B/P (MAP) Pulse Ox O2 Delivery O2 Flow Rate FiO2 10/24/18 17:09 68 16 123/82 (96) 100 Room Air 10/24/18 15:00 98.1 Lab Results Laboratory Tests Test 10/24/18 15:10 10/24/18 16:50 10/24/18 16:55 White Blood Count 3.6 x10^3/uL (4.0-11.0) L Red Blood Count 4.67 x10^6/uL (3.50-5.40) Hemoglobin 14.1 g/dL (12.0-15.5) Hematocrit 41.5 % (36.0-47.0) Mean Corpuscular Volume 89 fL (79-100) Mean Corpuscular Hemoglobin 30 pg (25-35) Mean Corpuscular Hemoglobin Concent 34 g/dL (31-37) Red Cell Distribution Width 13.7 % (11.5-14.5) Platelet Count 156 x10^3/uL (140-400) Neutrophils (%) (Auto) 44 % (31-73) Lymphocytes (%) (Auto) 46 % (24-48) Monocytes (%) (Auto) 11 % (0-9) H Eosinophils (%) (Auto) 0 % (0-3) Basophils (%) (Auto) 0 % (0-3) Neutrophils # (Auto) 1.6 x10^3uL (1.8-7.7) L Lymphocytes # (Auto) 1.6 x10^3/uL (1.0-4.8) Monocytes # (Auto) 0.4 x10^3/uL (0.0-1.1) Eosinophils # (Auto) 0.0 x10^3/uL (0.0-0.7) Basophils # (Auto) 0.0 x10^3/uL (0.0-0.2) Sodium Level 139 mmol/L (136-145) Potassium Level 4.1 mmol/L (3.5-5.1) Chloride Level 103 mmol/L (98-107) Carbon Dioxide Level 27 mmol/L (21-32) Anion Gap 9 (6-14) Blood Urea Nitrogen 14 mg/dL (7-20) Creatinine 0.9 mg/dL (0.6-1.0) Estimated GFR (Cockcroft-Gault) 70.8 BUN/Creatinine Ratio 16 (6-20) Glucose Level 77 mg/dL (70-99) Calcium Level 8.9 mg/dL (8.5-10.1) Total Bilirubin 0.4 mg/dL (0.2-1.0) Aspartate Amino Transferase (AST) 19 U/L (15-37) Alanine Aminotransferase (ALT) 29 U/L (14-59) Alkaline Phosphatase 40 U/L (46-116) L Total Protein 7.5 g/dL (6.4-8.2) Albumin 3.9 g/dL (3.4-5.0) Albumin/Globulin Ratio 1.1 (1.0-1.7) Lipase 77 U/L (73-393) Urine Collection Type Unknown Urine Color Yellow Urine Clarity Clear Urine pH 5.0 Urine Specific Clifton >=1.030 Urine Protein Neg (NEG-TRACE) Urine Glucose (UA) Neg mg/dL (NEG) Urine Ketones (Stick) Trace mg/dL (NEG) Urine Blood Mod (NEG) Urine Nitrite Neg (NEG) Urine Bilirubin Neg (NEG) Urine Urobilinogen Dipstick 0.2 mg/dL (0.2 mg/dL) Urine Leukocyte Esterase Neg (NEG) Urine RBC 3-5 /HPF (0-2) Urine WBC 1-4 /HPF (0-4) Urine Squamous Epithelial Cells Occ /LPF Urine Bacteria Few /HPF (0-FEW) Urine Mucus Mod /LPF POC Urine HCG, Qualitative hcg negative (Negative) EKG EKG [] Radiology/Procedures Radiology/Procedures PROCEDURE: CT ABD PELV W/ IV CONTRST ONLY CT ABD PELV W/ IV CONTRST ONLY Indication: Abdominal pain. Hematochezia. Nausea and diarrhea for one week. Exposure: One or more of the following individualized dose reduction techniques were utilized for this examination: 1. Automated exposure control 2. Adjustment of the mA and/or kV according to patient size 3. Use of iterative reconstruction technique. Technique: Intravenous contrast was given. No oral contrast per request. Urgent interpretation reporting is requested. Limited images are available from a CT scan of June 29, 2010, without report. FINDINGS: Atelectasis in the left lung base. The right lobe liver is elongated, 23 cm. Small hypodense lesions of the liver, too small to characterize but most commonly would be benign. Largest at the upper right lobe measures about 6 mm, slightly larger in size and on the prior study. Spleen mildly enlarged, 14 cm. No peripancreatic inflammation or fluid. The adrenal demonstrates no evidence of a mass. No significant hydronephrosis. Symmetric enhancement of both kidneys without focal lesion. No calcified gallstone. No aortic aneurysm. There is mild stranding within the central mesenteric fat with mildly enlarged lymph nodes, measuring up to 6 mm short axis. There are also prominent aortocaval lymph nodes measuring up to 9 mm short axis. Borderline prominent inguinal lymph nodes bilaterally. No significant small bowel distention. No evidence of acute colitis. Appendix is not clearly visualized. There is no evidence of ascites. No evidence of pneumoperitoneum. Hypodense lesion in the right adnexa measures 4 cm and -1 Hounsfield units, most likely an ovarian cyst. Intrauterine device is noted. The urinary bladder is not adequately distended for evaluation. Vertebral body height and alignment are intact. There is mild degenerative spurring. IMPRESSION: 1. Mild stranding within the central mesenteric fat with mildly enlarged lymph nodes. There also mildly enlarged retroperitoneal lymph nodes. This is often due to nonspecific inflammatory or infectious etiology, occasionally can be neoplastic such as lymphoma. However, the fact that a similar finding was seen in 2011 would make an aggressive process seem less likely. Follow-up CT scan in 3-4 months could be of benefit to evaluate for any progression or regression. 2. Hepatosplenomegaly. 3. Right ovarian lesion, most likely a 4 cm cyst. 4. Multiple tiny hepatic lesions, one of which at the dome is slightly larger than on prior study, but that was in 2011. Benign etiology is still favored, in the absence of other risk factor. Electronically signed by: Beau Barron MD (10/24/2018 5:29 PM) [facility] Course & Med Decision Making Course & Med Decision Making Pertinent Labs and Imaging studies reviewed. (See chart for details) Patient presents with report of diffuse abdominal pain with associated N/V/D. Concern for recent rectal bleeding. Abdominal diffusely tender. Labs obtained and posted to chart. WBC slightly low. H/H stable. AST/ALT/lipase also WNL. Alk phos slightly low. CT abd/pelvis with findings of fat stranding around mesentery with enlarged lymph node which was seen previously. A copy of CT results provided to patient to give to her PCP for future evaluation. Rectal exam performed which based on physical exam findings appears more likely secondary to vaginal bleeding but cannot exclude rectal etiology. Patient stable for discharge with outpatient follow-up with PCP/GI. GI referral provided. Discussed findings and plan with patient, who acknowledges understanding and agreement. Dragon Disclaimer Dragon Disclaimer This electronic medical record was generated, in whole or in part, using a voice recognition dictation system. Departure Departure: Impression: Primary Impression: Abdominal pain Additional Impressions: Nausea vomiting and diarrhea Rectal bleeding Abnormal finding on CT scan Disposition: HOME, SELF-CARE Condition: STABLE Referrals: DARWIN LAGUNAS (PCP) KIKA DELATORRE MD Patient Instructions: Abdominal Pain (Nonspecific), Diarrhea, [id number], Diet for Diarrhea, Adult, Nausea and Vomiting, [id number], Rectal Bleeding, [id number] Scripts Prednisone (PREDNISONE) 20 Mg Tablet 2 TAB PO DAILY for Inflammation for 5 Days, #10 TAB Prov: BEAU WALLACE DO 10/24/18 Hydrocortisone Acetate (ANUSOL-HC) 25 Mg Supp.rect 1 SUPP RC BID for Hemorrhoids, #14 SUPP Prov: BEAU WALLACE DO 10/24/18 Hyoscyamine Sulfate (LEVSIN-SL) 0.125 Mg Tab.subl 1-2 TAB SL PRN Q6HRS PRN for PAIN, #20 TAB Prov: BEAU WALLACE DO 10/24/18 Famotidine (PEPCID) 20 Mg Tablet 1 TAB PO BID for Gastritis, #60 TAB Prov: BEAU WALLACE DO 10/24/18 Ondansetron (ONDANSETRON ODT) 4 Mg Tab.rapdis 1 TAB PO PRN Q6-8HRS for NAUSEA, #16 TAB Prov: BEAU WALLACE DO 10/24/18 Problem Qualifiers Primary Impression: Abdominal pain Abdominal location: generalized Qualified Codes: R10.84 - Generalized abdominal pain BEAU WALLACE DO October 24, 2018 17:36
[2018-10-24] MEDS ORDERED: HYDR25SU18 RC (17:46)
[2018-10-24] MEDS ORDERED: ONDA4TAB12 PO (17:46)
[2018-10-24] MEDS ORDERED: HYOS0.1265 SL (17:46)
[2018-10-24] MEDS ORDERED: PRED20TA PO (17:46)
[2018-10-24] MEDS ORDERED: FAMO-63 PO (17:46)
[2018-10-24 18:00] VITALS: BP 122/70
== END 2018-10-24 18:07 | disposition home or self-care (01) ==
LOC: ER 14:47
DX: R19.7 Diarrhea, unspecified (principal); R11.2 Nausea with vomiting, unspecified; R10.84 Generalized abdominal pain; K62.5 Hemorrhage of anus and rectum; F41.9 Anxiety disorder, unspecified; J45.909 Unspecified asthma, uncomplicated; F32.9 Major depressive disorder, single episode, unspecified; Z98.890 Other specified postprocedural states; Z88.1 Allergy status to other antibiotic agents; Z88.2 Allergy status to sulfonamides; Z88.8 Allergy status to other drugs, medicaments and biological substances
CPT/HCPCS: 36415; 74177; 80053; 81001; 81025; 83690; 85025; 96361; 96372; 96374; 96375; 99285; J0500; J1885; J2405; J3490; Q9967; J7030

== ENCOUNTER 2018-10-28 08:07 | Emergency (ER) | payer OTHER ==
[~2018-10-28] VITALS: Ht 177.8 cm; Wt 94.9 kg
--- NOTE | 2018-10-28 08:26 | PHYS DOC ---
Past History Past Medical History: Anxiety, Asthma, Depression, Diabetes, Other Past Surgical History: , Tonsillectomy Smoking: Non-smoker Alcohol Use: None Drug Use: None Adult General Chief Complaint Chief Complaint: ABDOMINAL PAIN HPI HPI 38-year-old female returns to the emergency room with continued diarrhea. The patient was seen in this facility a few days ago for similar complaint. She was advised to make an appointment with GI. She has an appointment with a GI specialist in a couple of hours. She presents to the ED now because she was up all night at least 6 episodes of watery diarrhea. She did not get much sleep. She is concerned about dehydration. She is nauseated, but having no vomiting. She does not believe she is able to drink enough to keep up with her output. She denies fever or chills. Review of Systems Review of Systems Constitutional: Denies fever or chills [] Eyes: Denies change in visual acuity, redness, or eye pain [] HENT: Denies nasal congestion or sore throat [] Respiratory: Denies cough or shortness of breath [] Cardiovascular: No additional information not addressed in HPI [] GI: Mild generalized abdominal pain, nausea, diarrhea [] : Denies dysuria or hematuria [] Musculoskeletal: Denies back pain or joint pain [] Integument: Denies rash or skin lesions [] Neurologic: Denies headache, focal weakness or sensory changes [] Endocrine: Denies polyuria or polydipsia [] All other systems were reviewed and found to be within normal limits, except as documented in this note. Current Medications Current Medications Current Medications Medications (Trade) Dose Ordered Sig/[facility] Start Time Stop Time Status Last Admin Dose Admin Ondansetron HCl (Zofran) 4 mg 1X ONCE 10/28/18 08:45 10/28/18 08:46 Sodium Chloride 1,000 ml @ 1,000 mls/hr 1X ONCE 10/28/18 08:30 10/28/18 09:29 Allergies Allergies Allergies Coded Allergies Type Severity Reaction Last Updated Verified sulfamethoxazole Allergy Unknown 10/24/18 Yes trimethoprim Allergy Unknown 10/24/18 Yes naproxen Adverse Reaction Intermediate 09/06/14 Yes vancomycin Adverse Reaction Intermediate 09/06/14 Yes Physical Exam Physical Exam Constitutional: Well developed, well nourished, no acute distress, non-toxic appearance. [] HENT: Normocephalic, atraumatic, bilateral external ears normal, oropharynx moist, no oral exudates, nose normal. [] Eyes: PERRLA, EOMI, conjunctiva normal, no discharge. [] Neck: Normal range of motion, no tenderness, supple, no stridor. [] Cardiovascular:Heart rate regular rhythm, no murmur [] Lungs & Thorax: Bilateral breath sounds clear to auscultation [] Abdomen: Bowel sounds normal, soft, mild diffuse tenderness, no masses, no pulsatile masses. [] Skin: Warm, dry, no erythema, no rash. [] Back: No tenderness, no CVA tenderness. [] Extremities: No tenderness, no cyanosis, no clubbing, ROM intact, no edema. [] Neurologic: Alert and oriented X 3, normal motor function, normal sensory function, no focal deficits noted. [] Psychologic: Affect normal, judgement normal, mood normal. [] EKG EKG [] Radiology/Procedures Radiology/Procedures [] Course & Med Decision Making Course & Med Decision Making Pertinent Labs and Imaging studies reviewed. (See chart for details) The patient's labs are unremarkable. We gave her 4 mg of Zofran IV and a liter of normal saline. She is feeling a bit better and her nausea is better controlled. She would like to make it to her GI appointment. She is stable for discharge at this time. [] Dragon Disclaimer Dragon Disclaimer This electronic medical record was generated, in whole or in part, using a voice recognition dictation system. Departure Departure: Impression: Primary Impression: Diarrhea Disposition: HOME, SELF-CARE Condition: STABLE Referrals: DARWIN LAGUNAS (PCP) Patient Instructions: Diarrhea, [id number] Problem Qualifiers Primary Impression: Diarrhea Diarrhea type: unspecified type Qualified Codes: R19.7 - Diarrhea, unspecified BRITTNEY SHETTY DO October 28, 2018 08:26
[2018-10-28] MEDS ORDERED: IV NORMAL SALINE 1,000ML 1,000 ML IV ONE (08:30)
[2018-10-28] MEDS ORDERED: ONDANSETRON PF 4 MG/2 ML VIAL. IV ONE (08:45)
[2018-10-28 09:04] LABS: BASO % 0 % (0-3); EOS % 0 % (0-3); HEMATOCRIT 41.9 % (36.0-47.0); HEMOGLOBIN 14.1 g/dL (12.0-15.5); LYMPH # 3.1 x10^3/uL (1.0-4.8); LYMPH % 47 % (24-48); MEAN CORPUSCULAR HEMOGLOBIN 30 pg (25-35); MEAN CORPUSCULAR HGB CONC 34 g/dL (31-37); MEAN CORPUSCULAR VOLUME 89 fL (79-100); MONO # 0.6 x10^3/uL (0.0-1.1); MONO % 9 % (0-9); NEUT # 2.9 x10^3uL (1.8-7.7); NEUT % 44 % (31-73); PLATELET COUNT 167 x10^3/uL (140-400); RED BLOOD COUNT 4.68 x10^6/uL (3.50-5.40); RED CELL DISTRIBUTION WIDTH 13.9 % (11.5-14.5); WHITE BLOOD COUNT 6.5 x10^3/uL (4.0-11.0)
[2018-10-28 09:12] LABS: ALBUMIN 3.9 g/dL (3.4-5.0); ALBUMIN/GLOBULIN RATIO 1.1 (1.0-1.7); CALCIUM 8.8 mg/dL (8.5-10.1); GFR 62.7; POTASSIUM 3.4 mmol/L (3.5-5.1); TOTAL BILIRUBIN 0.4 mg/dL (0.2-1.0); TOTAL PROTEIN 7.3 g/dL (6.4-8.2)
[2018-10-28 09:29] VITALS: BP 113/67
== END 2018-10-28 09:29 | disposition home or self-care (01) ==
LOC: ER 08:07
DX: R19.7 Diarrhea, unspecified (principal); F41.9 Anxiety disorder, unspecified; J45.909 Unspecified asthma, uncomplicated; F32.9 Major depressive disorder, single episode, unspecified; E11.9 Type 2 diabetes mellitus without complications; Z98.890 Other specified postprocedural states; Z88.1 Allergy status to other antibiotic agents; Z88.2 Allergy status to sulfonamides; Z88.8 Allergy status to other drugs, medicaments and biological substances
CPT/HCPCS: 36415; 80053; 85025; 96361; 96374; 99284; J2405; J7030

== ENCOUNTER → 2018-10-28 | Outpatient (CLI) | payer OTHER ==
[~2018-10-28] MED LIST changes: +FAMO-63 PO; +HYDR25SU18 RC; +HYOS0.1265 SL; +ONDA4TAB12 PO; +PRED20TA PO
[2018-10-28 09:29] VITALS: BP 113/67
== END | disposition home or self-care (01) ==
LOC: LAB 12:33
PROVIDERS: ATTEND Internal Medicine Gastroenterology
DX: R19.7 Diarrhea, unspecified (principal)
CPT/HCPCS: 36415; 87045; 87177; 87329; 87493

== ENCOUNTER 2018-12-25 22:44 | Emergency (ER) | payer OTHER ==
[~2018-12-25] VITALS: Ht 177.8 cm; Wt 94.9 kg
[2018-12-25] MEDS ORDERED: GABA800T5 PO (23:01)
--- NOTE | 2018-12-25 23:02 | PHYS DOC ---
Past History Past Medical History: Anxiety, Asthma, Depression, Diabetes, Other Past Surgical History: , Tonsillectomy Smoking: Non-smoker Alcohol Use: None Drug Use: None Adult General Chief Complaint Chief Complaint: LOWEREXTREMITY INJURY HPI HPI Patient is a 38-year-old female who presents to the emergency department for evaluation. She states she was walking outside in the dark, and accidentally banged her right zheng against a generator and has pain and a contusion on the anterior aspect of her right zheng. She is able to ambulate but it is painful to do so. She denies any numbness, weakness, or any other injury. She states she is scheduled to have surgery on her right ACL this coming week. Review of Systems Review of Systems Constitutional: Denies fever or chills [] Musculoskeletal: Denies back pain or joint pain [] Integument: Denies rash or skin lesions [] Neurologic: Denies headache, focal weakness or sensory changes [] Allergies Allergies Allergies Coded Allergies Type Severity Reaction Last Updated Verified sulfamethoxazole Allergy Unknown 10/24/18 Yes trimethoprim Allergy Unknown 10/24/18 Yes naproxen Adverse Reaction Intermediate 09/06/14 Yes vancomycin Adverse Reaction Intermediate 09/06/14 Yes Physical Exam Physical Exam PHYSICAL EXAM: HEENT: Atruamatic NECK: Supple, normal ROM, non-tender. CARDIAC: Regular Rate and Rhythm LUNGS: Clear Bilaterally EXTREMITIES: There is a contusion on the anterior aspect of the right zheng, subtle, with tenderness to palpation in this area without crepitus. The ankle, foot, and knee are all relatively nontender. There is normal range of motion of the right knee, without any ligamentous laxity. The remainder the extremities are atraumatic. The patient is able to ambulate, with a slight limp. EKG EKG [] Radiology/Procedures Radiology/Procedures [] Course & Med Decision Making Course & Med Decision Making Pertinent Imaging studies reviewed. (See chart for details) []ER physician preliminary x-ray interpretation: No fracture of the right tib- fib. Dragon Disclaimer Dragon Disclaimer This electronic medical record was generated, in whole or in part, using a voice recognition dictation system. Departure Departure: Impression: Primary Impression: Contusion of leg Disposition: HOME, SELF-CARE Condition: STABLE Referrals: DARWIN LAGUNAS (PCP) Patient Instructions: Contusion ZABRINA CASE MD Dec 25, 2018 23:02
[2018-12-25 23:20] VITALS: BP 116/76
[2018-12-25] MEDS ORDERED: ACETAMINOPHEN 325 MG TABLET PO ONE (23:30)
--- NOTE | 2018-12-26 04:28 | RAD ---
EXAM: AP and lateral views of the right tibia/fibula DATE: 12/25/2018 11:00 PM INDICATION: Right leg injury, ran into generator midshaft pain COMPARISON: No Prior FINDINGS/ IMPRESSION: 1. Moderate soft tissue swelling about the right mid lower leg. 2. No evidence of acute fracture or dislocation. Electronically signed by: Jorge Diallo MD (12/26/2018 4:25 AM) [facility]
== END 2018-12-25 23:20 | disposition home or self-care (01) ==
LOC: ER 22:44
DX: S80.11XA Contusion of right lower leg, initial encounter (principal); J45.909 Unspecified asthma, uncomplicated; E11.9 Type 2 diabetes mellitus without complications; Z88.1 Allergy status to other antibiotic agents; Z88.8 Allergy status to other drugs, medicaments and biological substances; Z88.2 Allergy status to sulfonamides; W22.8XXA Striking against or struck by other objects, initial encounter; Y93.01 Activity, walking, marching and hiking; Y92.89 Other specified places as the place of occurrence of the external cause; Y99.8 Other external cause status
CPT/HCPCS: 73590; 99284

== ENCOUNTER 2019-03-31 17:32 | Emergency (ER) | payer MEDICAID, OTHER ==
[~2019-03-31] VITALS: Ht 177.8 cm; Wt 85.7 kg
[~2019-03-31 17:32] MED LIST changes: +GABA800T5 PO
--- NOTE | 2019-03-31 18:18 | PHYS DOC ---
Past History Past Medical History: Anxiety, Asthma, Depression, Diabetes, Other Past Surgical History: , Tonsillectomy, Other Additional Past Surgical Histo: RIGHT KNEE, RIGHT SHOULDER Smoking: Non-smoker Alcohol Use: None Drug Use: None Adult General Chief Complaint Chief Complaint: BACK PAIN OR INJURY HPI HPI Patient is a 38 year old female who presents with complaint of midthoracic back pain. The patient states that her symptoms started this morning and have been worsening throughout the day today. States that she has worsening tightness that starts in her mid back and radiates around her rib cage towards her front. Notes that this pain worsens with movement and when she tries to take a deep breath. Rates pain as 10 out of 10 notes that it is sharp. Denies any known injury but does state that she did throw a heavy bag of garbage into the garbage can yesterday but did not seem to feel any significant pain in her back at that time. Last took Tylenol 650 mg at approximately 1200 with no significant relief. Denies any associated fever, vomiting, diarrhea, or abdominal pain currently. Review of Systems Review of Systems Constitutional: Denies fever or chills [] Eyes: Denies change in visual acuity, redness, or eye pain [] HENT: Denies nasal congestion or sore throat [] Respiratory: Denies cough or shortness of breath [] Cardiovascular: Denies chest pain or edema[] GI: Denies abdominal pain, nausea, vomiting, bloody stools or diarrhea [] : Denies dysuria or hematuria [] Musculoskeletal: Back pain[] Integument: Denies rash or skin lesions [] Neurologic: Denies headache, focal weakness or sensory changes [] All other systems were reviewed and found to be within normal limits, except as documented in this note. Current Medications Current Medications Current Medications Medications (Trade) Dose Ordered Sig/Galo Start Time Stop Time Status Last Admin Dose Admin Orphenadrine Citrate (Norflex) 60 mg 1X ONCE 03/31/19 18:15 03/31/19 18:16 UNV Allergies Allergies Allergies Coded Allergies Type Severity Reaction Last Updated Verified sulfamethoxazole Allergy Unknown 10/24/18 Yes trimethoprim Allergy Unknown 10/24/18 Yes naproxen Adverse Reaction Intermediate 09/06/14 Yes vancomycin Adverse Reaction Intermediate 09/06/14 Yes Physical Exam Physical Exam Constitutional: Alert, afebrile, appears in moderate discomfort. [] HENT: Normocephalic, atraumatic, bilateral external ears normal, oropharynx moist, no oral exudates, nose normal. [] Eyes: PERRLA, EOMI, conjunctiva normal, no discharge. [] Neck: Normal range of motion, no tenderness, supple, no stridor. [] Cardiovascular:Heart rate regular rhythm, no murmur [] Lungs & Thorax: Bilateral breath sounds clear to auscultation [] Abdomen: Bowel sounds normal, soft, no tenderness, no masses, no pulsatile masses. [] Skin: Warm, dry, no erythema, no rash. [] Back: Bilateral mid to upper thoracic paraspinous muscle tenderness to palpation, no bony tenderness noted over midline or bilateral scapula, range of motion not tested secondary to pain. [] Extremities: No tenderness, no cyanosis, no clubbing, ROM intact, no edema. [] Neurologic: Alert and oriented X 3, normal motor function, normal sensory function, no focal deficits noted. [] Current Patient Data Vital Signs Vital Signs Date Time Temp Pulse Resp B/P (MAP) Pulse Ox O2 Delivery O2 Flow Rate FiO2 03/31/19 17:45 98.0 67 20 99 Room Air Lab Results Not performed EKG EKG Not performed[] Radiology/Procedures Radiology/Procedures Not performed[] Course & Med Decision Making Course & Med Decision Making Pertinent Labs and Imaging studies reviewed. (See chart for details) Patient was treated with IM Toradol and Norflex as well as oral Tylenol with improvement in pain symptoms. Prescribed Flexeril and ibuprofen 800 mg for continued outpatient treatment. Advised follow-up with primary doctor in the next 5 days for reevaluation and return to emergency department for any worsening symptoms. Patient was understanding and in agreement with treatment plan.[] Dragon Disclaimer Dragon Disclaimer This electronic medical record was generated, in whole or in part, using a voice recognition dictation system. Departure Departure: Impression: Primary Impression: Back pain Disposition: 01 HOME, SELF-CARE Condition: IMPROVED Referrals: DARWIN LAGUNAS (PCP) Patient Instructions: Back Pain, Adult Additional Instructions: Follow-up with your primary care provider in the next 5 days for reevaluation. Return to the emergency department for any worsening symptoms. Scripts Ibuprofen (IBUPROFEN) 800 Mg Tablet 1 TAB PO TID, #30 TAB Prov: MAGDA KAUR MD 03/31/19 Cyclobenzaprine Hcl (CYCLOBENZAPRINE HCL) 10 Mg Tablet 1 TAB PO TID PRN for MUSCLE SPASMS, #30 TAB Prov: MAGDA KAUR MD 03/31/19 Problem Qualifiers Primary Impression: Back pain Back pain location: thoracic back pain Chronicity: acute Back pain laterality: bilateral Qualified Codes: M54.6 - Pain in thoracic spine MAGDA KAUR MD Mar 31, 2019 18:18
[2019-03-31] MEDS ORDERED: ORPHENADRINE CITRATE 60 MG/2 ML VIAL. IM ONE (18:30)
[2019-03-31] MEDS ORDERED: ACETAMINOPHEN 500 MG TABLET PO ONE (18:45)
[2019-03-31] MEDS ORDERED: KETOROLAC 60 MG/2 ML VIAL. IM ONE (18:45)
[2019-03-31] MEDS ORDERED: IBUP800T19 PO (19:08)
[2019-03-31] MEDS ORDERED: CYCL-331 PO (19:08)
[2019-03-31 19:16] VITALS: BP 108/60
== END 2019-03-31 19:22 | disposition home or self-care (01) ==
LOC: ER 17:32
DX: M54.6 Pain in thoracic spine (principal); J45.909 Unspecified asthma, uncomplicated; E11.9 Type 2 diabetes mellitus without complications; Z98.890 Other specified postprocedural states; Z88.2 Allergy status to sulfonamides; Z88.1 Allergy status to other antibiotic agents; Z88.6 Allergy status to analgesic agent
CPT/HCPCS: 96372; 99284; J1885; J2360

== ENCOUNTER 2020-08-03 09:22 | Emergency (ER) | payer MEDICAID ==
[~2020-08-03] VITALS: Ht 177.8 cm; Wt 105.0 kg
[~2020-08-03 09:22] MED LIST changes: -CLIN150C14 PO; +CLIN150C15 PO; +CYCL-331 PO; +IBUP800T19 PO
[2020-08-03 09:45] VITALS: BP 159/85
--- NOTE | 2020-08-03 10:05 | PHYS DOC ---
Past History Past Medical History: Anxiety, Asthma, Depression, Diabetes Past Surgical History: , Tonsillectomy, Other Additional Past Surgical Histo: Bilat knees, shoulders, D&C Smoking: Non-smoker Alcohol Use: None Drug Use: None General Adult EDM: Chief Complaint: VAGINAL BLEEDING HPI: HPI: History obtained from patient. Patient is a 39-year-old female with no reported PMH who presents with chief complaint of lower abdominal cramping with vaginal bleeding. She states the lower abdominal cramping began earlier this morning. States is worse in her left lower quadrant. She also noted blood on tissue paper after wiping. Denies any blood in her stool. Denies urinary symptoms. Denies syncope. Denies any history of miscarriage, ectopic . Denies vaginal bleeding. Denies any clot passage. Denies fevers. Denies vomiting. Does follow with Dr. Solomon for her care but does not have an ultrasound to date. Estimates she is 5 weeks . States first day of last menstrual period was June 25. No other complaints. Review of Systems: Review of Systems: Constitutional: Denies fever or chills Eyes: Denies change in visual acuity HENT: Denies nasal congestion or sore throat Respiratory: Denies cough or shortness of breath Cardiovascular: Denies chest pain or edema GI: Positive for abdominal pain vaginal bleeding : Denies dysuria Musculoskeletal: Denies back pain or joint pain Integument: Denies rash Neurologic: Denies headache, focal weakness or sensory changes Endocrine: Denies polyuria or polydipsia Lymphatic: Denies swollen glands Psychiatric: Denies depression or anxiety Allergies: Allergies: Allergies Coded Allergies Type Severity Reaction Last Updated Verified sulfamethoxazole Allergy Unknown 08/03/20 Yes trimethoprim Allergy Unknown 08/03/20 Yes naproxen Adverse Reaction Intermediate 08/03/20 Yes vancomycin Adverse Reaction Intermediate 08/03/20 Yes Physical Exam: PE: Constitutional: Well developed, well nourished, no acute distress, non-toxic appearance. [] HENT: Normocephalic, atraumatic, bilateral external ears normal, oropharynx moist, no oral exudates, nose normal. [] Eyes: PERRLA, EOMI, conjunctiva normal, no discharge. [] Neck: Normal range of motion, no tenderness, supple, no stridor. [] Cardiovascular:Heart rate regular rhythm, no murmur [] Lungs & Thorax: Bilateral breath sounds clear to auscultation [] Abdomen: Soft, nontender, nonacute abdomen. No involuntary guarding or rigidity noted. No acute peritonitis. Skin: Warm, dry, no erythema, no rash. [] Back: No tenderness, no CVA tenderness. [] Extremities: No tenderness, no cyanosis, no clubbing, ROM intact, no edema. [] Neurologic: Alert and oriented X 3, normal motor function, normal sensory function, no focal deficits noted. [] Psychologic: Affect normal, judgement normal, mood normal. [] Current Patient Data: Labs: Laboratory Tests Test 08/03/20 10:20 08/03/20 10:42 White Blood Count 5.3 x10^3/uL Red Blood Count 4.53 x10^6/uL Hemoglobin 13.8 g/dL Hematocrit 41.3 % Mean Corpuscular Volume 91 fL Mean Corpuscular Hemoglobin 31 pg Mean Corpuscular Hemoglobin Concent 34 g/dL Red Cell Distribution Width 13.6 % Platelet Count 162 x10^3/uL Neutrophils (%) (Auto) 56 % Lymphocytes (%) (Auto) 37 % Monocytes (%) (Auto) 7 % Eosinophils (%) (Auto) 0 % Basophils (%) (Auto) 0 % Neutrophils # (Auto) 3.0 x10^3uL Lymphocytes # (Auto) 1.9 x10^3/uL Monocytes # (Auto) 0.4 x10^3/uL Eosinophils # (Auto) 0.0 x10^3/uL Basophils # (Auto) 0.0 x10^3/uL Maternal Serum HCG Beta Subunit 75415 mIU/mL Sodium Level 138 mmol/L Potassium Level 3.6 mmol/L Chloride Level 102 mmol/L Carbon Dioxide Level 24 mmol/L Anion Gap 12 Blood Urea Nitrogen 10 mg/dL Creatinine 0.8 mg/dL Estimated GFR (Cockcroft-Gault) 80.7 Glucose Level 86 mg/dL Calcium Level 8.6 mg/dL Urine Collection Type Unknown Urine Color Yellow Urine Clarity Clear Urine pH 6.5 Urine Specific Hudson 1.025 Urine Protein Neg Urine Glucose (UA) Neg mg/dL Urine Ketones (Stick) Neg mg/dL Urine Blood Neg Urine Nitrite Neg Urine Bilirubin Neg Urine Urobilinogen Dipstick 0.2 mg/dL Urine Leukocyte Esterase Neg Urine RBC Occ /HPF Urine WBC Occ /HPF Urine Squamous Epithelial Cells Few /LPF Urine Bacteria Few /HPF Urine Mucus Slight /LPF Vital Signs: Vital Signs Date Time Temp Pulse Resp B/P (MAP) Pulse Ox O2 Delivery O2 Flow Rate FiO2 08/03/20 09:45 98.3 88 16 159/85 (109) 98 EKG: EKG: [] Radiology/Procedures: Radiology/Procedures: [][address] [address] IMAGING REPORT Signed PATIENT: CHERYL MARTINEZ ACCOUNT: [id number] : 1980 LOCATION: ER AGE: 39 SEX: F EXAM STATUS: REG ER ORD. PHYSICIAN: CONNIE PEREZ DO REASON: lower abd pain. concer for miscarraige PROCEDURE: OB <14 WKS W/TV EXAMINATION: US OB <14 WKS +TV, 08/03/2020 11:55 AM CLINICAL INDICATION: Lower abdominal pain, concern for miscarriage TECHNIQUE: Grayscale, color and spectral Doppler ultrasound images of the pelvis via first trimester OB protocol. COMPARISON: None. FINDINGS: The uterus measures 10.0 x 6.8 x 6.5 cm. There is a gestational sac measuring 1.11 cm, consistent with 5 weeks 6 days. A yolk sac is present. No embryo visualized. The left ovary measures 3.6 x 2.5 x 2.3 cm and has a complex anechoic cyst with internal septations and an echogenic rim measuring 2.1 cm, possibly corpus luteum cyst. Right ovary is not visualized. No adnexal mass or free fluid. IMPRESSION: Intrauterine with gestational age 5 weeks 6 days, too early to determine viability. Correlate with serial beta-hCG and follow-up ultrasound. Electronically signed by: Cierra Madrigal MD (08/03/2020 1:34 PM) [id number] DICTATED AND SIGNED BY: CIERRA MADRIGAL MD DATE: 08/03/20 1230 CC: DARWIN LAGUNAS; CONNIE PEREZ DO ~MTH0 0 Heart Score: Risk Factors: Risk Factors: DM, Current or recent (<one month) smoker, HTN, HLP, family history of CAD, obesity. Risk Scores: Score 0 - 3: 2.5% MACE over next 6 weeks - Discharge Home Score 4 - 6: 20.3% MACE over next 6 weeks - Admit for Clinical Observation Score 7 - 10: 72.7% MACE over next 6 weeks - Early Invasive Strategies Course & Med Decision Making: Course & Med Decision Making Pertinent Labs and Imaging studies reviewed. (See chart for details) [] Patient is an overall well-appearing 39-year-old female who presents with chief complaint of lower abdominal cramping and vaginal spotting just prior to arrival. She estimates she is 6 weeks . Initial vital signs unremarkable. Abdomen benign. Ultrasound does reveal intrauterine gestation estimated age 5 weeks 6 days. Given she has only light vaginal spotting pelvic exam be deferred per her request. Overall do feel this is reasonable. Remainder of labs unremarkable. Blood type a positive. RhoGam will be d eferred. Urinalysis without obvious signs of infection. Repeat assessment patient's abdomen remains benign. I did update her on the results of pelvic imaging. Patient likely experiencing threatened miscarriage. Strict return precautions were discussed and understood. She was instructed to have repeat hormone level obtained in 3 days. She was encouraged follow-up with her [employer]. Patient agreeable and stable for discharge home. Sabra Disclaimer: Sabra Disclaimer: This electronic medical record was generated, in whole or in part, using a voice recognition dictation system. Departure Departure: Impression: Primary Impression: Threatened Disposition: 01 DC HOME SELF CARE/HOMELESS Condition: STABLE Referrals: DARWIN LAGUNAS (PCP) Patient Instructions: Threatened Miscarriage Additional Instructions: Please have repeat hormone level drawn in 3 days. CONNIE PEREZ DO Aug 03, 2020 10:05
[2020-08-03 10:37] LABS: BASO % 0 % (0-3); EOS % 0 % (0-3); HEMATOCRIT 41.3 % (36.0-47.0); HEMOGLOBIN 13.8 g/dL (12.0-15.5); LYMPH # 1.9 x10^3/uL (1.0-4.8); LYMPH % 37 % (24-48); MEAN CORPUSCULAR HEMOGLOBIN 31 pg (25-35); MEAN CORPUSCULAR HGB CONC 34 g/dL (31-37); MEAN CORPUSCULAR VOLUME 91 fL (79-100); MONO # 0.4 x10^3/uL (0.0-1.1); MONO % 7 % (0-9); NEUT % 56 % (31-73); PLATELET COUNT 162 x10^3/uL (140-400); RED BLOOD COUNT 4.53 x10^6/uL (3.50-5.40); RED CELL DISTRIBUTION WIDTH 13.6 % (11.5-14.5); WHITE BLOOD COUNT 5.3 x10^3/uL (4.0-11.0)
[2020-08-03 10:51] LABS: CALCIUM 8.6 mg/dL (8.5-10.1); CREATININE 0.8 mg/dL (0.6-1.0); GFR 80.7; POTASSIUM 3.6 mmol/L (3.5-5.1)
[2020-08-03 11:20] LABS: BACTERIA,URINE FEW /HPF (0-FEW); BILIRUBIN,URINE NEG (NEG); CLARITY,URINE CLEAR; COLOR,URINE YELLOW; GLUCOSE,URINE NEG (NEG); NITRITE,URINE NEG (NEG); RBC,URINE OCC /HPF (0-2); SQUAMOUS EPITHELIAL CELL,UR FEW /LPF; UROBILINOGEN,URINE 0.2 mg/dL (0.2 mg/dL); WBC,URINE OCC /HPF (0-4)
--- NOTE | 2020-08-03 13:36 | RAD ---
EXAMINATION: US OB <14 WKS +TV, 08/03/2020 11:55 AM CLINICAL INDICATION: Lower abdominal pain, concern for miscarriage TECHNIQUE: Grayscale, color and spectral Doppler ultrasound images of the pelvis via first trimester OB protocol. COMPARISON: None. FINDINGS: The uterus measures 10.0 x 6.8 x 6.5 cm. There is a gestational sac measuring 1.11 cm, consistent wit h 5 weeks 6 days. A yolk sac is present. No embryo visualized. The left ovary measures 3.6 x 2.5 x 2.3 cm and has a complex anechoic cyst with internal septations a nd an echogenic rim measuring 2.1 cm, possibly corpus luteum cyst. Right ovary is not visualized. No adnexal mass or free fluid. IMPRESSION: Intrauterine with gestational age 5 weeks 6 days, too early to determine viabil ity. Correlate with serial beta-hCG and follow-up ultrasound. Electronically signed by: Cierra Madrigal MD (08/03/2020 1:34 PM) [id number]
== END 2020-08-03 14:03 | disposition home or self-care (01) ==
LOC: ER 09:22
DX: O20.0 Threatened abortion (principal); O99.511 Diseases of the respiratory system complicating pregnancy, first trimester; J45.909 Unspecified asthma, uncomplicated; O24.911 Unspecified diabetes mellitus in pregnancy, first trimester; Z88.2 Allergy status to sulfonamides; Z3A.01 Less than 8 weeks gestation of pregnancy; Z88.1 Allergy status to other antibiotic agents; Z88.8 Allergy status to other drugs, medicaments and biological substances
CPT/HCPCS: 36415; 76801; 76817; 80048; 81001; 84702; 85025; 86850; 86900; 86901; 99284

== ENCOUNTER 2021-09-16 22:12 | Emergency (ER) | payer MEDICAID ==
[~2021-09-16] VITALS: Ht 175.3 cm; Wt 116.7 kg
[~2021-09-16 22:12] MED LIST changes: -CLIN150C15 PO; +CLIN150C16 PO; -CYCL-331 PO; +CYCL10TA19 PO
[2021-09-16 22:21] VITALS: BP 92/40
[2021-09-16] MEDS ORDERED: ONDANSETRON ODT 4 MG TAB.RAPDIS PO ONE (23:00)
[2021-09-16] MEDS ORDERED: CLIN-95 PO (23:07)
--- NOTE | 2021-09-16 23:07 | PHYS DOC ---
Past History Past Medical History: Anxiety, Asthma, Depression, Diabetes Past Surgical History: Other Additional Past Surgical Histo: Bilat knees, shoulders, D&C Smoking: Non-smoker Alcohol Use: None Drug Use: None General Adult EDM: Chief Complaint: ABSCESS HPI: HPI: 41-year-old female presents with abscess in the perineal area. She states is been there for 2 days. She has had multiple of these in the past and at least once it was MRSA. She is concerned about this. She gets a lesion in this area about once a month. She states using a dedicated new razor every time she shaves in this area separate from other razor she uses for other parts of her body. She is allergic to several medications. She is able to take clindamycin. She has no other complaints this time. Review of Systems: Review of Systems: Constitutional: Denies fever or chills Eyes: Denies change in visual acuity HENT: Denies nasal congestion or sore throat Respiratory: Denies cough or shortness of breath Cardiovascular: Denies chest pain or edema GI: Denies abdominal pain, nausea, vomiting, bloody stools or diarrhea : Denies dysuria Musculoskeletal: Denies back pain or joint pain Integument: Abscess Neurologic: Denies headache, focal weakness or sensory changes Endocrine: Denies polyuria or polydipsia Lymphatic: Denies swollen glands Psychiatric: Denies depression or anxiety Current Medications: Current Meds: Current Medications Medications (Trade) Dose Ordered Sig/Galo Start Time Stop Time Status Last Admin Dose Admin Ondansetron HCl (Zofran Odt) 4 mg 1X ONCE 09/16/21 23:00 09/16/21 23:01 Allergies: Allergies: Allergies Coded Allergies Type Severity Reaction Last Updated Verified sulfamethoxazole Allergy Intermediate 09/16/21 Yes trimethoprim Allergy Intermediate 09/16/21 Yes naproxen Adverse Reaction Intermediate 08/03/20 Yes vancomycin Adverse Reaction Intermediate 08/03/20 Yes Physical Exam: PE: Constitutional: Well developed, well nourished, no acute distress, non-toxic appearance. [] HENT: Normocephalic, atraumatic, bilateral external ears normal, oropharynx moist, no oral exudates, nose normal. [] Eyes: PERRLA, EOMI, conjunctiva normal, no discharge. [] Neck: Normal range of motion, no tenderness, supple, no stridor. [] Cardiovascular: Heart rate regular rhythm, no murmur [] Lungs & Thorax: Bilateral breath sounds clear to auscultation [] Abdomen: Bowel sounds normal, soft, no tenderness, no masses, no pulsatile masses. [] Skin: 1 cm abscess of the left perineal area. Small fluctuant center. [] Back: No tenderness, no CVA tenderness. [] Extremities: No tenderness, no cyanosis, no clubbing, ROM intact, no edema. [] Neurologic: Alert and oriented X 3, normal motor function, normal sensory funct ion, no focal deficits noted. [] Psychologic: Affect normal, judgement normal, mood normal. [] Current Patient Data: Vital Signs: Vital Signs Date Time Temp Pulse Resp B/P (MAP) Pulse Ox O2 Delivery O2 Flow Rate FiO2 09/16/21 22:21 98.3 88 20 92/40 (57) 96 Room Air EKG: EKG: [] Radiology/Procedures: Radiology/Procedures: [] Heart Score: C/O Chest Pain: N/A Risk Factors: Risk Factors: DM, Current or recent (<one month) smoker, HTN, HLP, family his tory of CAD, obesity. Risk Scores: Score 0 - 3: 2.5% MACE over next 6 weeks - Discharge Home Score 4 - 6: 20.3% MACE over next 6 weeks - Admit for Clinical Observation Score 7 - 10: 72.7% MACE over next 6 weeks - Early Invasive Strategies Course & Med Decision Making: Course & Med Decision Making Pertinent Labs and Imaging studies reviewed. (See chart for details) I performed an I&D on the patient's abscess. See note below for details. I will treat her with clindamycin for 10 days. We will give the first dose the emergency room. [] Dragon Disclaimer: Dragon Disclaimer: This electronic medical record was generated, in whole or in part, using a voice recognition dictation system. Incision and Drainage Indication: Perineal abscess Procedure: I obtained verbal consent for incision and drainage of the patient's abscess. The skin was cleaned with alcohol. A 2 mm incision was made with a #11 blade. There was bloody and pus expressed. The area was not large enough for breaking up loculations. A clean dressing was applied. The patient's tetanus is up-to-date. The patient tolerated the procedure well Complications: None Departure Departure: Impression: Primary Impression: Perineal abscess Disposition: HOME / SELF CARE / HOMELESS Condition: STABLE Referrals: PANDA CRABTREE (PCP) Patient Instructions: Abscess, Care After Scripts Clindamycin Hcl (CLINDAMYCIN HCL) 300 Mg Capsule 1 CAP PO TID for abscess for 10 Days, #30 CAP Prov: BRITTNEY SHETTY DO 09/16/21 BRITTNEY SHETTY DO Sep 16, 2021 23:07
[2021-09-16] MEDS ORDERED: CLINDAMYCIN HCL 150 MG CAPSULE PO ONE (23:15)
== END 2021-09-16 23:17 | disposition home or self-care (01) ==
LOC: ER 22:12
DX: L02.215 Cutaneous abscess of perineum (principal); J45.909 Unspecified asthma, uncomplicated; E11.9 Type 2 diabetes mellitus without complications; F41.9 Anxiety disorder, unspecified; Z88.2 Allergy status to sulfonamides; Z88.1 Allergy status to other antibiotic agents; Z88.8 Allergy status to other drugs, medicaments and biological substances
CPT/HCPCS: 56405; 99284; Q0162